=== PATIENT | male | born 1990 | race Caucasian/White ===

== ENCOUNTER 2016-10-06 01:40 | Emergency (ER) | payer OTHER ==
[2016-10-06 03:49] LABS: Basophils % (Auto) 0.5 % (0.0-1.8); Eosinophils % (Auto) 1.2 % (0.0-4.3); Hematocrit 39.5 % (35.5-45.6); Hemoglobin 13.2 gm/dl (11.8-15.2); Mean Corpuscular HGB Conc 34 % (32-34); Mean Corpuscular Hemoglobin 28 pg (28-32); Mean Corpuscular Volume 84 fl (84-94); Platelet Count 168 K/mm3 (140-440); Red Blood Count 4.73 M/mm3 (3.65-5.03); Red Cell Distribution Width 13.7 % (13.2-15.2); White Blood Count 6.2 K/mm3 (4.5-11.0)
[2016-10-06 04:24] LABS: Anion Gap 17 mmol/L; BUN/Creatinine Ratio 8.75; Blood Urea Nitrogen 7 mg/dL (9-20); Calcium 9.2 mg/dL (8.4-10.2); Carbon Dioxide 26 mmol/L (22-30); Chloride 102.8 mmol/L (98-107); Glucose 108 mg/dL (75-100); Potassium 3.5 mmol/L (3.6-5.0); Sodium 142 mmol/L (137-145)
[2016-10-06 04:28] LABS: Urine Drugs of Abuse Note Disclamer
[2016-10-06 04:54] LABS: Bilirubin,Urine NEG (Negative); Blood,Urine NEG (Negative); Ketones,Urine NEG (Negative); Leukocyte Esterase,Urine NEG (Negative); Mucus,Urine FEW /HPF; Nitrite,Urine NEG (Negative); Protein,Urine <15 mg/dL mg/dL (Negative); WBC,Urine < 1.0 /HPF (0.0-6.0)
[2016-10-06] MEDS ORDERED: ATIVAN PO ONE ×2 (06:39→17:00)
--- NOTE | 2016-10-06 06:43 | Emergency Department Report ---
ED Psych HPI - General Chief Complaint: Psych Stated Complaint: QUINTIN ALMODOVAR Time Seen by Provider: 10/06/16 06:30 Source: patient Mode of arrival: Ambulatory Limitations: No Limitations - History of Present Illness Initial Comments: 26-year-old male presents to the emergency department for psychiatric evaluation. Patient states that he began having auditory and visual hallucinations yesterday. He states the night before he was out drinking and thinks somebody may have put something in his drink. Patient states it feels like he is having an out of body experience. He states he thinks things are crawling on his arms and legs. Patient also reports suicidal and homicidal thoughts. The homicidal thoughts are not directed toward any individual. He states that he is only having suicidal thoughts and he does not have a plan. Patient admits to a history of Lucid dreams but states this is different. There are no other complaints. MD Complaint: suicidal ideation -: Gradual, days(s) (1) Associated Psychiatric Symptoms: suicidal ideation, homicidal ideation, auditory hallucinations, visual hallucinations History of same: No Quality: constant Improves With: none Worsens With: none Context: recent alcohol abuse Associated Symptoms: denies other symptoms Treatments Prior to Arrival: none If Self Harm: admits thoughts of - Related Data Allergies Allergy/AdvReac Type Severity Reaction Status Date / Time No Known Allergies Allergy Unverified 10/06/16 02:24 ED Review of Systems ROS: Stated complaint: QUINTIN ALMODOVAR Other details as noted in HPI Comment: All other systems reviewed and negative Psychiatric: auditory hallucinations, visual hallucinations, homicidal thoughts , suicidal thoughts ED Past Medical Hx - Past Medical History Previous Medical History?: Yes Hx Psychiatric Treatment: Yes (depression) Additional medical history: BACK PAIN, JOINT PAIN, TESTICULAR TORSION - Surgical History Past Surgical History?: No - Family History Family history: no significant - Social History Smoking Status: Current Some Day Smoker Substance Use Type: None ED Physical Exam - General Limitations: No Limitations General appearance: alert, in no apparent distress - Head Head exam: Present: atraumatic, normocephalic - Eye Eye exam: Present: normal appearance, PERRL, EOMI - ENT ENT exam: Present: normal exam, normal orophraynx, mucous membranes moist - Neck Neck exam: Present: normal inspection, full ROM. Absent: tenderness - Respiratory Respiratory exam: Present: normal lung sounds bilaterally. Absent: respiratory distress - Cardiovascular Cardiovascular Exam: Present: regular rate, normal rhythm, normal heart sounds - GI/Abdominal GI/Abdominal exam: Present: soft, normal bowel sounds. Absent: distended, tenderness - Extremities Exam Extremities exam: Present: normal inspection, full ROM. Absent: tenderness - Back Exam Back exam: Present: normal inspection, full ROM. Absent: tenderness - Neurological Exam Neurological exam: Present: alert, oriented X3. Absent: motor sensory deficit - Psychiatric Psychiatric exam: Present: normal affect, anxious, homicidal ideation, suicidal ideation - Skin Skin exam: Present: warm, dry, intact ED Course Vital Signs 10/06/16 10/06/16 02:24 06:16 Temperature 98.5 F 98.8 F Pulse Rate 64 62 Respiratory 18 20 Rate Blood Pressure 141/98 Blood Pressure 159/97 [Right] O2 Sat by Pulse 100 97 Oximetry - Reevaluation(s) Reevaluation #1: 10/06/16 06:42 Lab results reviewed and discussed with the patient. Patient is medically cleared. Form 1013 will be signed and placed in the patient's chart. Patient is awaiting mental health evaluation. ED Medical Decision Making - Lab Data Result diagrams: 10/06/16 03:31 10/06/16 03:31 - Differential Diagnosis depression with psychosis, schizophrenia Critical care attestation.: If time is entered above; I have spent that time in minutes in the direct care of this critically ill patient, excluding procedure time. ED Disposition Clinical Impression: Severe major depression with psychotic features Disposition: DC/TX PSY HOSP/PSY UNIT Is pt being admited?: No Condition: Stable Referrals: PRIMARY CARE, [Primary Care Provider] - 3-5 Days Time of Disposition: 06:43
--- NOTE | 2016-10-06 13:51 | Consultation ---
History of Present Illness - Reason for Consult Consult date: 10/06/16 Reason for consult: Mental Health Evaluation Requesting physician: KRISH BRICE - Chief Complaint Chief complaint: "I don't know what's wrong with me" - History of Present Psychiatric Illness 26-year-old AA male presents to the emergency department for psychiatric evaluation with suicidal thoughts without a plan. Patient states that he began having auditory hallucinations yesterday. He states that he attended a libertarian a day ago and believe someone put something in his drink. He could not tell me more about the libertarian (location, etc) or what the voices are saying to him. He states that he struggle with depression consistently. Patient is a and was discharged from the [employer] for mental illness. He was seen by a psychiatrist in the [employer], but he could not tell me his last treatment. He did states that he was on "Zoloft" for a short period of time. Patient states that he felt like his body is leaving him currently. Also, patient has been experiencing insomnia the past 24 hours. He says the voices are getting stronger today, but he try to block them out. During the discussion the patient became emotional and wanted his mom to stay overnight to protect him. His mother added collateral information stated her son's behavior is totally out of character. She is aware of his hx of major depression. He currently see a clinician at [place], [place]. Patient rate his depression and anxiety 8/10, with 10 being the worse today. He denies HI's or VH's. Medications and Allergies Allergies Allergy/AdvReac Type Severity Reaction Status Date / Time No Known Allergies Allergy Unverified 10/06/16 02:24 Home Medications Medication Instructions Recorded Confirmed Last Taken Type Sertraline [Zoloft] 100 mg PO QDAY 10/06/16 10/06/16 10/01/16 History Past psychiatric history - Past Medical History Past Medical History: No medical history Past Surgical History: No surgical history - past Psychiatric treatment and history Psych: Depression psychiatric treatment history: Psy service while in the [employer]. Denies fam hx of psy - Social History Social history: single (Employed and have some college) Mental Status Exam - Vital signs Last Vital Signs Temp 98.2 F 10/06/16 09:11 Pulse 78 10/06/16 09:11 Resp 20 10/06/16 09:11 BP 105/60 10/06/16 09:11 Pulse Ox 100 10/06/16 09:11 - Exam Narrative exam: ROS (+) psychosis, (+) delusional, (+) Suicidal Thoughts Orientation: place, person Affect: flat Mood: anxious, other (emotional) Thought content: paranoia Thought Process: Circumstantial Perceptions: auditory Speech: normal rate and pattern Concentration: focused Motor activity: other (Ambulatory) Level of consciousness: alert Memory: Recent Impaired Sleep Symptoms: Insomnia Interaction: cooperative Results Result Diagrams: 10/06/16 03:31 10/06/16 03:31 Abnormal lab results 10/06/16 10/06/16 Range/Units 03:31 03:31 Morris % (Auto) 11.8 H (0.0-7.3) % Potassium 3.5 L (3.6-5.0) mmol/L BUN 7 L (9-20) mg/dL Glucose 108 H (75-100) mg/dL All other labs normal. Assessment and Plan Assessment and plan: Impression: Patient is depressed with psychotic features. Patient emotional and present with circumstantial thoughts. He states that he has suicidal thoughts because of the AH's he is experiencing at this time. Patient could not tell me what the voices are saying. Gained collateral information from his mother who was at the bedside. He denies HI's or VH's. Recommendation/Plan: Continue 1013 with possible placement inpatient psy services. Start Remeron 7.5 mg PO HS for depression and help with sleep.
[2016-10-06] MEDS ORDERED: VALIUM IM ONE (20:28)
[2016-10-06] MEDS: REMERON PO SCH (22:52)
[2016-10-07] MEDS ORDERED: ATIVAN ONE (17:17)
[2016-10-07] MEDS ORDERED: ATIVAN IM ONE (17:46)
--- NOTE | 2016-10-07 19:22 | Emergency Department Report ---
Blank Doc - Documentation Documentation: Vital signs stable. Patient had a questionable seizure yesterday. 1013 active awaiting placement
--- NOTE | 2016-10-07 20:22 | Progress Note ---
Subjective - Reason for Consult Reason for consult: psych consult - Chief Complaint Chief complaint: 26-year-old AA male presents to the emergency department for psychiatric evaluation with suicidal thoughts without a plan and psychosis. Patient continues to exprience psychotic symptoms- both auditory and visual in nature. He said his VH is "normal day stuff." Also noted that "I'm in the news." He is vague with the content of the hallucinations- which vary and is indicative of his level of disorganization. Patient is also referring to suicidal thoughts secondary to being bothered by the hallucinations. He has given no indication that he intends to act on these thoughts though. He did require a PRN per the nurse today. Mental Status Exam - Vital signs Last Vital Signs Temp 98.2 F 10/07/16 17:35 Pulse 69 10/07/16 17:35 Resp 18 10/07/16 17:35 BP 117/69 10/07/16 17:35 Pulse Ox 100 10/07/16 17:35 - Exam Orientation: time, place, person Affect: agitated Mood: anxious Thought content: delusions, ideas of reference Thought Process: Tangential, Disorganized Perceptions: visual, auditory Speech: normal rate and pattern Concentration: distractible Motor activity: agitated Level of consciousness: alert Memory: Intact Interaction: cooperative Assessment and Plan Assessment: 26-year-old AA male presents to the emergency department for psychiatric evaluation with suicidal thoughts without a plan and psychosis. Patient continues to experience psychotic symptoms- both auditory and visual in nature. He is acknowledging experiencing this and seems distraught by this. Recommendation/Plan: Continue 1013 with possible placement inpatient psy services. Remeron has helped with sleep but the psychosis is quite evident. Currently much of his presentation is fueled by the psychosis and as such will begin Zyprexa 5mg po qhs- discussed side effects, risk and benefits.
[2016-10-07] MEDS: REMERON PO SCH (21:50)
--- NOTE | 2016-10-08 07:44 | Progress Note ---
Subjective - Reason for Consult Consult date: 10/08/16 Reason for consult: Psychiatry Fi[place]-up - Chief Complaint Chief complaint: 26-year-old AA male presents to the emergency department for psychiatric evaluation with suicidal thoughts without a plan and psychosis. Today patient continues to experience auditory hallucinations with a tangential thought process. He states "I hear stuff in my ears and people talking about me." Patient stated, "I am suicidal this morning, I think." He believes the voices are telling him to be suicidal at this time, but denies a plan. He was vague describing if he was experiencing a depressed mood and or anxiety. He would like for his mom to be at the bedside to keep him safe. I explained to the patient that he is being observed for his safety. He denies VH's and HI's. Mental Status Exam - Vital signs Last Vital Signs Temp 98.9 F 10/07/16 21:51 Pulse 77 10/07/16 21:51 Resp 20 10/07/16 21:51 BP 132/89 10/07/16 21:51 Pulse Ox 100 10/07/16 21:51 - Exam Orientation: person Affect: depressed Mood: congruent with affect Thought content: delusions Thought Process: Circumstantial Perceptions: visual Speech: normal rate and pattern Concentration: focused Motor activity: other (Lying bed) Level of consciousness: confused Memory: Recent Impaired Sleep Symptoms: None Interaction: cooperative Assessment and Plan Impression: 26-year-old AA male presents to the emergency department for psychiatric evaluation with suicidal thoughts without a plan and psychosis. Patient continues to experience auditory hallucinations with a tangential thought process. He struggles explaining how he feels at this time. Recommendation/Plan: Continue 1013 with possible placement to inpatient psy services. Continue Remeron and the Zyprexa. Psychosis is quite evident at this time. He acknowledged getting more sleep the past 2 nights.
--- NOTE | 2016-10-08 18:52 | Emergency Department Report ---
Blank Doc - Documentation Documentation: Vital Signs - 24 hr 10/07/16 10/08/16 10/08/16 21:51 08:46 13:24 Temperature 98.9 F 98 F 99.3 F Pulse Rate 77 111 H 83 Respiratory 20 20 20 Rate Blood Pressure 132/89 135/98 136/85 [Right] O2 Sat by Pulse 100 97 98 Oximetry Vital signs reviewed. No events reported. Awaiting placement
[2016-10-08] MEDS: REMERON PO SCH (22:34)
--- NOTE | 2016-10-09 07:56 | Event Note ---
Date: 10/09/16 Nursing staff informed me that patient tied a sheet around his neck, was standing up, attempted to hang himself. He was not suspended from anything. No erythema noted around the neck. There is no tenderness to the neck. The neck is supple. The patient is speaking in full sentences. He is eating without difficulty. His physical exam is otherwise unremarkable. Laboratory studies, vital signs are reviewed and appreciated. A paper gown is ordered, and the patient is oriented to be placed in a room where he has nothing to hang himself with. Given his physical exam, and clinical appearance , I do not believe he requires imaging at this time. Vital Signs 10/06/16 10/06/16 10/06/16 02:24 06:16 06:43 Temperature 98.5 F 98.8 F Pulse Rate 64 62 Respiratory 18 20 20 Rate Blood Pressure 141/98 Blood Pressure 159/97 [Right] O2 Sat by Pulse 100 97 100 Oximetry 10/06/16 10/06/16 10/07/16 09:11 20:24 06:07 Temperature 98.2 F 98.3 F Pulse Rate 78 89 Respiratory 20 20 20 Rate Blood Pressure Blood Pressure 105/60 137/88 [Right] O2 Sat by Pulse 100 99 100 Oximetry 10/07/16 10/07/16 10/07/16 09:10 17:35 21:51 Temperature 98.2 F 98.2 F 98.9 F Pulse Rate 69 69 77 Respiratory 16 18 20 Rate Blood Pressure Blood Pressure 130/83 117/69 132/89 [Right] O2 Sat by Pulse 96 100 100 Oximetry 10/08/16 10/08/16 10/08/16 08:46 13:24 20:50 Temperature 98 F 99.3 F 99.3 F Pulse Rate 111 H 83 109 H Respiratory 20 20 20 Rate Blood Pressure Blood Pressure 135/98 136/85 136/90 [Right] O2 Sat by Pulse 97 98 98 Oximetry 10/09/16 05:44 Temperature Pulse Rate Respiratory 20 Rate Blood Pressure Blood Pressure [Right] O2 Sat by Pulse 100 Oximetry Labs 10/06/16 10/06/16 10/06/16 03:31 03:31 03:31 WBC 6.2 RBC 4.73 Hgb 13.2 Hct 39.5 MCV 84 MCH 28 MCHC 34 RDW 13.7 Plt Count 168 Lymph % (Auto) 20.8 Otoe % (Auto) 11.8 H Eos % (Auto) 1.2 Baso % (Auto) 0.5 Lymph # 1.3 Otoe # 0.7 Eos # 0.1 Baso # 0.0 Seg Neutrophils % 65.7 Seg Neutrophils # 4.0 Sodium 142 Potassium 3.5 L Chloride 102.8 Carbon Dioxide 26 Anion Gap 17 BUN 7 L Creatinine 0.8 Estimated GFR > 60 BUN/Creatinine Ratio 8.75 Glucose 108 H Calcium 9.2 Urine Color Urine Turbidity Urine pH Ur Specific Mabie Urine Protein Urine Glucose (UA) Urine Ketones Urine Blood Urine Nitrite Urine Bilirubin Urine Urobilinogen Ur Leukocyte Esterase Urine WBC (Auto) Urine RBC (Auto) Urine Mucus Urine Opiates Screen Urine Methadone Screen Ur Barbiturates Screen Ur Phencyclidine Scrn Ur Amphetamines Screen U Benzodiazepines Scrn Urine Cocaine Screen U Marijuana (THC) Screen Drugs of Abuse Note Plasma/Serum Alcohol < 0.01 10/06/16 10/06/16 04:18 04:18 WBC RBC Hgb Hct MCV MCH MCHC RDW Plt Count Lymph % (Auto) Otoe % (Auto) Eos % (Auto) Baso % (Auto) Lymph # Otoe # Eos # Baso # Seg Neutrophils % Seg Neutrophils # Sodium Potassium Chloride Carbon Dioxide Anion Gap BUN Creatinine Estimated GFR BUN/Creatinine Ratio Glucose Calcium Urine Color Yellow Urine Turbidity Clear Urine pH 7.0 Ur Specific Mabie 1.015 Urine Protein <15 mg/dl Urine Glucose (UA) Neg Urine Ketones Neg Urine Blood Neg Urine Nitrite Neg Urine Bilirubin Neg Urine Urobilinogen 2.0 Ur Leukocyte Esterase Neg Urine WBC (Auto) < 1.0 Urine RBC (Auto) 2.0 Urine Mucus Few Urine Opiates Screen Presumptive negative Urine Methadone Screen Presumptive negative Ur Barbiturates Screen Presumptive negative Ur Phencyclidine Scrn Presumptive negative Ur Amphetamines Screen Presumptive negative U Benzodiazepines Scrn Presumptive negative Urine Cocaine Screen Presumptive negative U Marijuana (THC) Screen Presumptive positive Drugs of Abuse Note Disclamer Plasma/Serum Alcohol
--- NOTE | 2016-10-09 14:37 | Progress Note ---
Subjective - Reason for Consult Consult date: 10/09/16 Reason for consult: Psychiatry Follow-up - Chief Complaint Chief complaint: 26-year-old AA male presents to the emergency department for psychiatric evaluation with suicidal thoughts without a plan and psychosis. Today patient presents calm and cooperative during assessment. Earlier this morning he was witnessed wrapping a bed sheet around his neck by staff. He stated, "I was hallucinating thoughts of killing my sister and her baby." Currently, he denies SI/HI's or AVH's at this time. He denies being hopeless, helpless or sad. Mental Status Exam - Vital signs Last Vital Signs Temp 98.1 F 10/09/16 07:50 Pulse 109 H 10/09/16 07:50 Resp 18 10/09/16 07:50 BP 148/99 10/09/16 07:50 Pulse Ox 100 10/09/16 07:50 - Exam Orientation: place, person Mood: appropriate Thought content: other (None) Thought Process: Intact Perceptions: none Speech: normal rate and pattern Concentration: focused Motor activity: other (Ambulatory) Level of consciousness: alert Memory: Recent Impaired Sleep Symptoms: None Interaction: cooperative Assessment and Plan Impression: 26-year-old AA male presents to the emergency department for psychiatric evaluation with suicidal thoughts without a plan and psychosis. Today the staff witnessed patient with a bed sheet wrapped around his "neck" per nurse note. He stated, "I am hallucinating thoughts of killing my sister and her baby." Currently, he denies Si/HI's or AVH's at this time. Recommendation/Plan: Continue 1013 with possible placement to inpatient psy services. Continue Remeron 7.5 mg PO HS and increase Zyprexa to 10 mg PO HS for psychosis. He acknowledged getting adequate sleep.
[2016-10-09] MEDS: REMERON PO SCH (22:29)
--- NOTE | 2016-10-10 13:36 | Progress Note ---
Subjective - Reason for Consult Reason for consult: psych consult - Chief Complaint Chief complaint: 26-year-old AA male presents to the emergency department for psychiatric evaluation with suicidal thoughts without a plan and psychosis. Patient notes that he cannot fully explain why he placed the sheet around his neck. He states that it may have been secondary to him experiencing a flashback with trauma from the past. While currently he denies any SI/HI/AH/VH he still presents with vague descriptions of his symptoms and still seems disorganized at times. Mental Status Exam - Vital signs Last Vital Signs Temp 99.2 F 10/09/16 22:00 Pulse 98 H 10/09/16 22:00 Resp 16 10/09/16 22:00 BP 132/92 10/09/16 22:00 Pulse Ox 99 10/09/16 22:00 - Exam Orientation: place, person Affect: depressed Mood: anxious Thought content: delusions Thought Process: Circumstantial, Tangential, Disorganized Perceptions: none Speech: slow Concentration: distractible Motor activity: other (slow) Level of consciousness: alert Memory: Intact Interaction: apathetic Assessment and Plan Assessment: 26-year-old AA male presents to the emergency department for psychiatric evaluation with suicidal thoughts without a plan and psychosis. Patient continues to experience vague psychotic symptoms- but states that auditory and visual hallucinations have decreased in nature. Patient has poor insight and we are concerned that he isn't able to accurately explain his current symptoms. Recommendation/Plan: Continue 1013 with possible placement inpatient psy services. continue Remeron and Zyprexa as directed.
[2016-10-10 20:06] VITALS: BP 133/88
== END 2016-10-10 19:45 ==
LOC: EEVIPCON 01:40 → ED 01:40
DX: F32.3 Major depressive disorder, single episode, severe with psychotic features (principal); R45.851 Suicidal ideations; F17.200 Nicotine dependence, unspecified, uncomplicated
CPT/HCPCS: 36415; 80048; 80307; 81001; 85025; 96372; 99285; G0480; J2060; J3360; 80320

== ENCOUNTER 2017-12-17 18:31 | Emergency (ER) | payer OTHER ==
[2017-12-17 19:12] VITALS: BP 120/68
--- NOTE | 2017-12-17 21:33 | Emergency Department Report ---
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 ED Past Medical Hx - Past Medical History Hx Psychiatric Treatment: Yes (depression) Additional medical history: BACK PAIN, JOINT PAIN, TESTICULAR TORSION - Social History Smoking Status: Current Every Day Smoker - Medications Home Medications: Home Medications Medication Instructions Recorded Confirmed Last Taken Type Sertraline [Zoloft] 100 mg PO QDAY 10/06/16 10/06/16 10/01/16 History EPINEPHrine [Epipen 2-Nacho] 0.3 mg IJ PRN PRN #1 auto.injct 12/17/17 Unknown Rx Famotidine [Pepcid] 20 mg PO BID PRN #14 tablet 12/17/17 Unknown Rx diphenhydrAMINE [Benadryl CAP] 25 mg PO Q8HR PRN #30 capsule 12/17/17 Unknown Rx predniSONE [Deltasone] 40 mg PO QDAY 5 Days #10 tab 12/17/17 Unknown Rx ED Review of Systems ROS: Stated complaint: ALLERGIC REACTION Other details as noted in HPI Constitutional: denies: chills, fever Eyes: denies: eye pain, eye discharge, vision change ENT: congestion. denies: ear pain, throat pain Respiratory: denies: cough, shortness of breath, stridor, wheezing Cardiovascular: denies: chest pain, palpitations, syncope Endocrine: flushing Gastrointestinal: denies: abdominal pain, nausea, diarrhea Genitourinary: denies: urgency, dysuria Musculoskeletal: denies: back pain, joint swelling, arthralgia Skin: rash, pruritus Neurological: denies: headache, weakness, paresthesias Psychiatric: denies: anxiety, depression Hematological/Lymphatic: swollen glands. denies: easy bleeding, easy bruising Physical Exam - Physical Exam Vital Signs: Vital Signs 12/17/17 19:09 Temperature 98.6 F Pulse Rate 69 Respiratory 16 Rate Blood Pressure 120/68 O2 Sat by Pulse 98 Oximetry General: Patient appears well in no acute distress Physical Exam: Mild periorbital swelling airway is patent uvula midline no exudate no lesions no stridor no wheezing lungs are clear no wheezing no rhonchi no accessory muscle use in breathing and no tachypnea no rash no hives to hands neck or trunk patient is tolerating by mouth intake there is no nausea no vomiting alevism are even nonlabored ED Course Vital Signs 12/17/17 19:09 Temperature 98.6 F Pulse Rate 69 Respiratory 16 Rate Blood Pressure 120/68 O2 Sat by Pulse 98 Oximetry Critical care attestation.: If time is entered above; I have spent that time in minutes in the direct care of this critically ill patient, excluding procedure time. ED Disposition Clinical Impression: Contact dermatitis Qualifiers: Contact dermatitis type: allergic Contact dermatitis trigger: unspecified trigger Qualified Code(s): L23.9 - Allergic contact dermatitis, unspecified cause Allergic reaction Qualifiers: Encounter type: initial encounter Qualified Code(s): T78.40XA - Allergy, unspecified, initial encounter Disposition: - TO HOME OR SELFCARE Is pt being admited?: No Does the pt Need Aspirin: No Condition: Good Instructions: Allergies (ED) Prescriptions: diphenhydrAMINE [Benadryl CAP] 25 mg PO Q8HR PRN #30 capsule PRN Reason: allergies EPINEPHrine [Epipen 2-Nacho] 0.3 mg IJ PRN PRN #1 auto.injct PRN Reason: severe allergy symptoms Famotidine [Pepcid] 20 mg PO BID PRN #14 tablet PRN Reason: allergies predniSONE [Deltasone] 40 mg PO QDAY 5 Days #10 tab Referrals: PRIMARY CARE, [Primary Care Provider] - 3-5 Days Forms: Work/School Release Form(ED) Time of Disposition: 21:55
[2017-12-17] MEDS ORDERED: PEPCID PO ONE (21:35)
[2017-12-17] MEDS ORDERED: BANOPHEN PO ONE (21:35)
[2017-12-17] MEDS ORDERED: DELTASONE PO ONE (21:35)
== END 2017-12-17 22:40 | disposition home or self-care (01) ==
LOC: ED 18:31
DX: L23.9 Allergic contact dermatitis, unspecified cause (principal); T78.40XA Allergy, unspecified, initial encounter; F32.9 Major depressive disorder, single episode, unspecified; F17.200 Nicotine dependence, unspecified, uncomplicated
CPT/HCPCS: 99282; J7512; Q0163

== ENCOUNTER 2018-07-06 21:30 | Emergency (ER) | payer OTHER ==
[2018-07-06 22:30] LABS: Basophils % (Auto) 0.5 % (0.0-1.8); Eosinophils # (Auto) 0.1 K/mm3 (0.0-0.4); Eosinophils % (Auto) 1.4 % (0.0-4.3); Hematocrit 40.4 % (35.5-45.6); Lymphocytes # (Auto) 1.8 K/mm3 (1.2-5.4); Lymphocytes % (Auto) 42.4 % (13.4-35.0); Mean Corpuscular HGB Conc 35 % (32-34); Mean Corpuscular Volume 88 fl (84-94); Monocytes # (Auto) 0.5 K/mm3 (0.0-0.8); Monocytes % (Auto) 12.5 % (0.0-7.3); Platelet Count 191 K/mm3 (140-440); Red Cell Distribution Width 13.6 % (13.2-15.2)
[2018-07-06 22:43] LABS: INR 0.98 (0.87-1.13)
[2018-07-06 22:44] LABS: Partial Thromboplastin Time 24.6 Sec. (24.2-36.6)
[2018-07-06 22:55] LABS: Alanine Aminotransferase 9 units/L (7-56); Albumin 4.6 g/dL (3.9-5); BUN/Creatinine Ratio 5; Blood Urea Nitrogen 6 mg/dL (9-20); Calcium 9.1 mg/dL (8.4-10.2); Hemolysis Index 6
--- NOTE | 2018-07-06 23:35 | Cat Scan Report ---
FINAL REPORT PROCEDURE: CT HEAD/BRAIN WO CON TECHNIQUE: Computerized tomography of the head was performed without contrast material. HISTORY: Syncope, AMS COMPARISON: No prior studies are available for comparison. FINDINGS: Skull and scalp: Normal. Paranasal sinuses: Mild opacification of the ethmoid sinus. Ventricles and subarachnoid spaces: Normal. Cerebrum: No evidence of hemorrhage, acute infarction or mass . Cerebellum and brainstem: No evidence of hemorrhage, acute infarction or mass. Vasculature: Normal. Comments: None. IMPRESSION: There is no evidence of an acute intracranial process. Mild sinusitis.
[2018-07-07] MEDS ORDERED: NACL 0.9% 1000 ML 1,000 ML IV ONE (01:26)
--- NOTE | 2018-07-07 01:49 | Emergency Department Report ---
HPI - General Chief Complaint: Syncope Time Seen by Provider: 07/06/18 22:03 - HPI HPI: 28-year-old -[place] male presents to the emergency department via EMS from home after he had what appears to be a syncopal episode while in the bathroom. Patient says that he was standing up against the toilet when he suddenly felt very dizzy and then he woke up on the bathroom floor with his family standing around him and EMS having been called. He complains of a mild headache. He has a past medical history of hypertension, depression, anxiety. Most of his medical care usually occurs through the [facility] No recent travel or sick contacts at home. He denies any alcohol or illicit drug use or abuse. ED Past Medical Hx - Past Medical History Previous Medical History?: Yes Hx Hypertension: Yes Hx Psychiatric Treatment: Yes (depression, anxiety) Additional medical history: BACK PAIN, JOINT PAIN, TESTICULAR TORSION - Surgical History Past Surgical History?: No - Social History Smoking Status: Unknown if ever smoked Substance Use Type: None - Medications Home Medications: Home Medications Medication Instructions Recorded Confirmed Last Taken Type Sertraline [Zoloft] 100 mg PO QDAY 10/06/16 10/06/16 10/01/16 History EPINEPHrine [Epipen 2-Nacho] 0.3 mg IJ PRN PRN #1 auto.injct 12/17/17 Unknown Rx Famotidine [Pepcid] 20 mg PO BID PRN #14 tablet 12/17/17 Unknown Rx RX: predniSONE [Deltasone] 40 mg PO QDAY 5 Days #10 tab 12/17/17 Unknown Rx diphenhydrAMINE [Benadryl CAP] 25 mg PO Q8HR PRN #30 capsule 12/17/17 Unknown Rx ED Review of Systems ROS: Stated complaint: AMS Other details as noted in HPI Comment: All other systems reviewed and negative Constitutional: denies: chills, fever Eyes: denies: eye pain, eye discharge, vision change ENT: denies: ear pain, throat pain Respiratory: denies: cough, shortness of breath, wheezing Cardiovascular: syncope. denies: chest pain Gastrointestinal: denies: abdominal pain, vomiting Genitourinary: denies: dysuria, discharge Musculoskeletal: denies: back pain, arthralgia Skin: denies: rash, lesions Neurological: headache. denies: numbness Physical Exam - Physical Exam Vital Signs: Vital Signs 07/06/18 07/06/18 07/06/18 21:50 21:54 22:00 Temperature 98.5 F Pulse Rate 71 66 63 Respiratory 12 18 17 Rate Blood Pressure 142/94 132/92 O2 Sat by Pulse 99 99 Oximetry 07/06/18 07/06/18 07/06/18 22:15 22:31 22:45 Temperature Pulse Rate 73 69 66 Respiratory 22 22 19 Rate Blood Pressure 132/92 132/92 154/101 O2 Sat by Pulse 100 100 100 Oximetry 07/06/18 07/06/18 07/06/18 23:09 23:11 23:15 Temperature Pulse Rate 62 67 Respiratory 8 L 20 10 L Rate Blood Pressure 152/99 152/99 O2 Sat by Pulse 100 100 100 Oximetry 07/06/18 07/06/18 07/07/18 23:30 23:45 00:00 Temperature Pulse Rate 62 63 66 Respiratory 14 15 14 Rate Blood Pressure 139/95 152/99 150/100 O2 Sat by Pulse 100 100 100 Oximetry 07/07/18 07/07/18 07/07/18 00:15 00:30 00:45 Temperature Pulse Rate 70 69 85 Respiratory 18 11 L 15 Rate Blood Pressure 150/100 136/97 136/97 O2 Sat by Pulse 100 100 99 Oximetry 07/07/18 07/07/18 07/07/18 01:03 01:15 01:30 Temperature Pulse Rate Respiratory Rate Blood Pressure 139/100 139/100 134/93 O2 Sat by Pulse 100 100 Oximetry Physical Exam: GENERAL: The patient is well-developed well-nourished. HEENT: Normocephalic. Atraumatic. Patient has moist mucous membranes. EYES: Extraocular motions are intact. Pupils are equal and reactive to light bilaterally. No nystagmus. NECK: Supple. Trachea is midline. CHEST/LUNGS: Clear to auscultation. There is no respiratory distress noted. HEART/CARDIOVASCULAR: Regular. There is no tachycardia. There is no obvious murmur. ABDOMEN: Abdomen is soft, nontender. Patient has normal bowel sounds. There is no abdominal distention. SKIN: Skin is warm and dry. NEURO: The patient is awake, alert, and oriented. The patient is cooperative. The patient has no focal neurologic deficits. The patient has normal speech. Cranial nerves II through XII grossly intact. MUSCULOSKELETAL: There is no tenderness or deformity. There is no limitation range of motion. There is no evidence of acute injury. ED Course Vital Signs 07/06/18 07/06/18 07/06/18 21:50 21:54 22:00 Temperature 98.5 F Pulse Rate 71 66 63 Respiratory 12 18 17 Rate Blood Pressure 142/94 132/92 O2 Sat by Pulse 99 99 Oximetry 07/06/18 07/06/18 07/06/18 22:15 22:31 22:45 Temperature Pulse Rate 73 69 66 Respiratory 22 22 19 Rate Blood Pressure 132/92 132/92 154/101 O2 Sat by Pulse 100 100 100 Oximetry 07/06/18 07/06/18 07/06/18 23:09 23:11 23:15 Temperature Pulse Rate 62 67 Respiratory 8 L 20 10 L Rate Blood Pressure 152/99 152/99 O2 Sat by Pulse 100 100 100 Oximetry 07/06/18 07/06/18 07/07/18 23:30 23:45 00:00 Temperature Pulse Rate 62 63 66 Respiratory 14 15 14 Rate Blood Pressure 139/95 152/99 150/100 O2 Sat by Pulse 100 100 100 Oximetry 07/07/18 07/07/18 07/07/18 00:15 00:30 00:45 Temperature Pulse Rate 70 69 85 Respiratory 18 11 L 15 Rate Blood Pressure 150/100 136/97 136/97 O2 Sat by Pulse 100 100 99 Oximetry 07/07/18 07/07/18 07/07/18 01:03 01:15 01:30 Temperature Pulse Rate Respiratory Rate Blood Pressure 139/100 139/100 134/93 O2 Sat by Pulse 100 100 Oximetry ED Medical Decision Making - Lab Data Result diagrams: 07/06/18 22:09 07/06/18 22:09 - EKG Data -: EKG Interpreted by Nd EKG shows normal: sinus rhythm, axis, intervals, QRS complexes (LVH), ST-T waves Rate: normal - EKG Data When compared to previous EKG there are: previous EKG unavailable Interpretation: LVH - Radiology Data Radiology results: report reviewed CT of the head without contrast does not show any bleed, shift, mass, ischemia or any other acute process. - Medical Decision Making Patient presents after what appears to be a syncopal episode in his bathroom. At first the patient is very soft-spoken and not very forthcoming about what has been going on. A CT scan of the head without contrast was done that does not show any bleed, shift, mass, ischemia or any other acute process. Patient's labs were unremarkable including a CBC, CMP, blood alcohol level, troponin, TSH. EKG did not show any signs of ST elevation PR or any significant dysrhythmia. Vital signs stable throughout his ED course. The patient was reevaluated multiple times over multiple hours and there has not been any further episodes of passing out or any seizure-like activity. The patient does not have any focal, motor or sensory deficits and his cranial nerves have been intact. While I do believe that the patient did have a syncopal episode, I believe that some of the patient's demeanor may be secondary to stress at home and/or may be psychiatric. Both his parents are consistently at the bedside and sometimes talking over him if not talking for him and he appears to quiet down and shut down inside of himself when they are doing so. However he does not appear to be fearful of them or express any concerns regarding them being at the bedside. The patient appears safe for discharge home at this time. He was ambulatory around the emergency department and both appeared and felt stable. He gets most of his medical care through the [facility] but I also gave him a referral for the [facility] facility. He will return to the ER with any worsening of his symptoms or any acute distress. - Differential Diagnosis orthostatic hypotension, vasovagal, TIA, depression Critical Care Time: No Critical care attestation.: If time is entered above; I have spent that time in minutes in the direct care of this critically ill patient, excluding procedure time. ED Disposition Clinical Impression: Stress Syncope Qualifiers: Syncope type: unspecified Qualified Code(s): R55 - Syncope and collapse Disposition: DC-01 TO HOME OR SELFCARE Is pt being admited?: No Condition: Stable Instructions: Syncope (ED) Additional Instructions: Please follow-up with your primary care physician in the next few days. Return to the emergency department with any return or worsening of her symptoms, and with any acute distress. Referrals: PRIMARY CARE, [Primary Care Provider] - 2-[address] [facility] [Outside] - 2-3 Days Forms: Accompanied Note, Work/School Release Form(ED) Time of Disposition: 02:30
[2018-07-07 02:29] VITALS: BP 142/108
== END 2018-07-07 02:53 | disposition home or self-care (01) ==
LOC: ED 21:30
DX: F43.9 Reaction to severe stress, unspecified (principal); R55 Syncope and collapse; I10 Essential (primary) hypertension; F32.9 Major depressive disorder, single episode, unspecified; F41.9 Anxiety disorder, unspecified
CPT/HCPCS: 36415; 70450; 80053; 82140; 84443; 84484; 85025; 85610; 85730; 93005; 93010; 96360; 99285; G0480; J7030; 80320